=== PATIENT | male | born 1965 | race Caucasian/White ===

== ENCOUNTER → 2018-07-27 | Outpatient (CLI) | payer OTHER | LOC: M.MRI 08:30 | DX: M47.896 Other spondylosis, lumbar region (principal); M51.27 Other intervertebral disc displacement, lumbosacral region; M48.07 Spinal stenosis, lumbosacral region; G89.29 Other chronic pain ==

== ENCOUNTER 2018-10-07 23:02 | Emergency (ER) | payer OTHER ==
[~2018-10-07] VITALS: Ht 172.7 cm; Wt 83.9 kg
[2018-10-07] MEDS ORDERED: CARAFATE 1 GM TA1 GM PO (23:57)
[2018-10-08 00:04] VITALS: BP 170/84
== END 2018-10-08 00:06 | disposition home or self-care (01) ==
LOC: M.ERS 23:02
DX: T17.298A Other foreign object in pharynx causing other injury, initial encounter (principal); X58.XXXA Exposure to other specified factors, initial encounter

== ENCOUNTER → 2019-11-25 | Outpatient (CLI) | payer OTHER ==
[~2019-11-25] MED LIST: CARAFATE 1 GM TA1 GM PO
== END ==
LOC: M.CT 16:17
PROVIDERS: ATTEND Family Medicine
DX: M47.817 Spondylosis without myelopathy or radiculopathy, lumbosacral region (principal)